=== PATIENT | male | born 1970 | race Caucasian/White ===

== ENCOUNTER 2019-11-06 12:58 | Outpatient (CLI) | payer OTHER, SELFPAY ==
--- NOTE | ~2019-11-06 | XR_ITS ---
EXAMINATION: XR shoulder LT min 2V DATE: 11/06/2019 13:22 INDICATION: Left shoulder pain. TECHNIQUE: 4 views of left shoulder were obtained. COMPARISON: None. FINDINGS: Bone alignment is normal. No fracture. There is mild osteoarthritis of glenohumeral joint a nd acromioclavicular joint characterized by tiny marginal osteophytes. IMPRESSION: 1. Mild polyarticular osteoarthritis. Reviewed, dictated and finalized at location A.
== END 2019-11-06 12:59 | disposition home or self-care (01) ==
PROVIDERS: PCP Internal Medicine; Visit Provider Internal Medicine
DX: M19.012 Primary osteoarthritis, left shoulder (principal)
CPT/HCPCS: 73030

== ENCOUNTER 2019-11-24 07:10 | Outpatient (CLI) | payer OTHER, SELFPAY ==
[2019-11-24 07:44] LABS: Basophils Percent Auto 0.4 % (0.2-1.2); Eosinophils Absolute Auto 0.2 K/mm3 (0-0.3); Eosinophils Percent Auto 2.4 % (0-4.4); Hematocrit 49.1 % (42.0-52.0); Hemoglobin 16.7 g/dL (14.0-18.0); Immature Granulocyte Absolute 0.03 K/mm3 (0.00-0.031); Immature Granulocyte Percent A 0.3 % (0-0.5); Lymphocytes Absolute Auto 2.91 K/mm3 (0.9-3.2); Lymphocytes Percent Auto 32.7 % (18.3-44.2); Mean Corpuscular Hemoglobin 30.8 pg (26-34); Mean Corpuscular Volume 90.6 fl (80-100); Mean Platelet Volume 10.4 fl (7.4-10.4); Monocytes Absolute Auto 0.7 K/mm3 (0.1-0.6); Monocytes Percent Auto 7.4 % (2.6-8.5); Neutrophils Absolute Auto 5.1 K/mm3 (1.3-6.7); Neutrophils Percent Auto 56.8 % (45.5-73.1); Platelet Count Result 239 k/mm3 (150-375); Red Blood Count 5.42 M/mm3 (4.6-6.20); Red Cell Distribution Width 13.5 % (11.5-14.5); White Blood Count 8.9 K/mm3 (4.5-10.0)
[2019-11-24 12:58] LABS: Alanine Aminotransferase 59 U/L (4-50); Albumin Level 4.7 g/dL (3.5-5.1); Alkaline Phosphatase 64 U/L (38-126); Aspartate Amino Transferase 41 U/L (17-59); Bilirubin,Total 0.8 mg/dL (0.2-1.3); Blood Urea Nitrogen 18 mg/dL (9-20); Carbon Dioxide 22 mmol/L (22-30); Chloride 104 mmol/L (98-107); Cholesterol 222 mg/dL (0-200); Estimated Glomerular Filt Rate > 60; Glucose 101 mg/dL (75-110); HDL Direct 34 mg/dL; Potassium 4.4 mmol/L (3.4-5.0); Sodium 137 mmol/L (137-145); Triglycerides 93 mg/dL (<150)
[2019-11-24 13:10] LABS: LDL Cholesterol Direct 179 mg/dL
[2019-11-24 14:04] LABS: Folic Acid 14.1 ng/mL (2.76->20)
[2019-11-28 12:20] LABS: Testosterone Free 57.5 pg/mL (35.0-155.0); Testosterone Total 306 ng/dL (250-1100)
== END 2019-11-24 07:11 | disposition home or self-care (01) ==
PROVIDERS: PCP Internal Medicine; Visit Provider Internal Medicine
DX: R53.83 Other fatigue (principal); E78.5 Hyperlipidemia, unspecified
CPT/HCPCS: 36415; 80053; 80061; 82607; 82746; 84402; 84403; 84443; 85025

== ENCOUNTER 2020-11-15 06:59 | Outpatient (CLI) | payer OTHER, SELFPAY ==
[2020-11-15 07:48] LABS: Basophils Percent Auto 0.4 % (0.2-1.2); Eosinophils Absolute Auto 0.1 K/mm3 (0-0.3); Eosinophils Percent Auto 1.6 % (0-4.4); Hematocrit 44.2 % (42.0-52.0); Hemoglobin 14.8 g/dL (14.0-18.0); Immature Granulocyte Absolute 0.06 K/mm3 (0.00-0.031); Immature Granulocyte Percent A 0.8 % (0-0.5); Lymphocytes Absolute Auto 2.73 K/mm3 (0.9-3.2); Lymphocytes Percent Auto 35.7 % (18.3-44.2); Mean Corpuscular HGB Conc 33.5 g/dl (32-36); Mean Corpuscular Volume 92.7 fl (80-100); Mean Platelet Volume 10.4 fl (7.4-10.4); Monocytes Absolute Auto 0.6 K/mm3 (0.1-0.6); Monocytes Percent Auto 7.3 % (2.6-8.5); Neutrophils Absolute Auto 4.1 K/mm3 (1.3-6.7); Neutrophils Percent Auto 54.2 % (45.5-73.1); Platelet Count Result 201 k/mm3 (150-375); Red Blood Count 4.77 M/mm3 (4.6-6.20); Red Cell Distribution Width 13.3 % (11.5-14.5); White Blood Count 7.6 K/mm3 (4.5-10.0)
[2020-11-15 10:51] LABS: Alanine Aminotransferase 43 U/L (4-50); Albumin Level 4.3 g/dL (3.5-5.1); Alkaline Phosphatase 46 U/L (38-126); Anion Gap 7 mmol/L (8-16); Aspartate Amino Transferase 33 U/L (17-59); Bilirubin,Total 0.3 mg/dL (0.2-1.3); Blood Urea Nitrogen 17 mg/dL (9-20); Calcium 9.4 mg/dL (8.4-10.2); Carbon Dioxide 27 mmol/L (22-30); Chloride 106 mmol/L (98-107); Cholesterol 190 mg/dL (0-200); Estimated Glomerular Filt Rate > 60; Glucose 90 mg/dL (75-110); HDL Direct 31 mg/dL; Potassium 4.3 mmol/L (3.4-5.0); Sodium 140 mmol/L (137-145); Triglycerides 55 mg/dL (<150)
[2020-11-15 11:03] LABS: LDL Cholesterol Direct 122 mg/dL
[2020-11-15 11:23] LABS: Prostate Specific Antigen 0.5 ng/mL (< OR = 4.0)
[2020-11-15 11:57] LABS: Folic Acid 12.1 ng/mL (2.76->20)
[2020-11-18 20:14] LABS: Testosterone Free 240.9 pg/mL (35.0-155.0); Testosterone Total 1090 ng/dL (250-1100)
== END 2020-11-15 07:00 | disposition home or self-care (01) ==
PROVIDERS: PCP Internal Medicine; Visit Provider Internal Medicine
DX: Z00.00 Encounter for general adult medical examination without abnormal findings (principal); R53.83 Other fatigue; Z12.5 Encounter for screening for malignant neoplasm of prostate
CPT/HCPCS: 36415; 80053; 80061; 82607; 82746; 84153; 84402; 84403; 84443; 85025; G0103

== ENCOUNTER 2020-12-01 09:36 | Outpatient (CLI) | payer OTHER, SELFPAY ==
--- NOTE | 2020-12-01 09:52 | EST_ITS ---
Patient Info Name: Jared Samson Age: 50 years : 1970 Gender: Male Ht: 68 in Wt: 190 lbs BSA: 2.05 m2 Technical Quality: Good Exam Date: 12/01/2020 10:11 AM Exam Location: [facility] Pulmonary Patient Status: Outpatient Admit Date: 12/01/2020 Staff Ordering Physician: Norberto Monson DO Elevator Installer: Frances Cardenas RDCS Attending Provider: KIERAN CASTRO DO Referring Physician: Ermias HERNANDEZ; Exercise Technologist: Brittany Mcclain RDCS Exercise Physician: Kieran Castro DO Exam Type: CA stress echo Study Info Indications R07.89 - Other chest pain Treadmill exercise stress echocardiogram is performed. Summary 1. 1. Negative Aaron exercise stress test for ischemic ST changes by ECG criteria. 2. 2. Good functional capacity, achieving 12 METs of workload. 3. 3. Appropriate HR response to exercise. 4. 4. Appropriate HR recovery at 1 minute post exercise. 5. 5. Negative stress echocardiogram for ischemia by wall motion analysis. 6. 6. Patient informed of the above results. Stress Echo Findings Left Ventricle Appropriate increase in LV endocardial thickening with systole. Appropriate augmentation of contractility with systole. No wall motion abnormality. Left Ventricle Normal LV systolic function, no wall motion abnormality. Protocol: Aaron Stress ECG Details Stage: REST Duration (min): 4 min : 45 sec Speed (mph): 0.0 Grade (%): 0 HR (bpm): 63 SBP (mmHg): 107 DBP (mmHg): 84 METS: --- Stage: REST Duration (min): 18 min : 43 sec Speed (mph): 0.0 Grade (%): 0 HR (bpm): 70 SBP (mmHg): 107 DBP (mmHg): 84 METS: --- Stage: STAGE 1 Duration (min): 1 min : 0 sec Speed (mph): 1.7 Grade (%): 10 HR (bpm): 90 SBP (mmHg): 107 DBP (mmHg): 84 METS: --- Stage: STAGE 1 Duration (min): 2 min : 0 sec Speed (mph): 1.7 Grade (%): 10 HR (bpm): 91 SBP (mmHg): 107 DBP (mmHg): 84 METS: --- Stage: STAGE 1 Duration (min): 3 min : 0 sec Speed (mph): 1.7 Grade (%): 10 HR (bpm): 98 SBP (mmHg): 143 DBP (mmHg): 79 METS: --- Stage: STAGE 2 Duration (min): 1 min : 0 sec Speed (mph): 2.5 Grade (%): 12 HR (bpm): 103 SBP (mmHg): 143 DBP (mmHg): 79 METS: --- Stage: STAGE 2 Duration (min): 2 min : 0 sec Speed (mph): 2.5 Grade (%): 12 HR (bpm): 103 SBP (mmHg): 120 DBP (mmHg): 77 METS: --- Stage: STAGE 2 Duration (min): 3 min : 0 sec Speed (mph): 2.5 Grade (%): 12 HR (bpm): 113 SBP (mmHg): 120 DBP (mmHg): 77 METS: --- Stage: STAGE 3 Duration (min): 1 min : 0 sec Speed (mph): 3.4 Grade (%): 14 HR (bpm): 116 SBP (mmHg): 134 DBP (mmHg): 85 METS: --- Stage: STAGE 3 Duration (min): 2 min : 0 sec Speed (mph): 3.4 Grade (%): 14 HR (bpm): 129 SBP (mmHg): 134 DBP (mmHg): 85 METS: --- Stage: STAGE 3 Duration (min): 3 min : 0 sec Speed (mph): 3.4
== END 2020-12-01 09:37 | disposition home or self-care (01) ==
LOC: ANHCARD 09:38
PROVIDERS: PCP Internal Medicine; Visit Provider Internal Medicine
DX: R07.89 Other chest pain (principal)
CPT/HCPCS: 93351

== ENCOUNTER → 2021-03-30 15:59 | Outpatient (REF) | payer OTHER, SELFPAY | LOC: ANHLAB 15:59 | PROVIDERS: PCP Internal Medicine; Visit Provider Nurse Practitioner | DX: D22.5 Melanocytic nevi of trunk (principal) | CPT/HCPCS: 88305 ==

== ENCOUNTER 2021-11-22 07:46 | Outpatient (CLI) | payer OTHER, SELFPAY ==
--- NOTE | 2021-12-18 01:23 | WPDSLEEPSTUD ---
Sleep Study Date of Study: 11/22/21 Ordering Provider: Norberto Monson DO Interpreting Physician: Dania Cabezas MD Sleep Study Type: Polysomnogram Height: 1.73 m Weight: 88.451 kg Body Mass Index: 29.6 Neck Circumference (inches): 18 [place]: 10 Reason for Sleep Study Hypersomnolence, loud snoring Sleep History Jared Samson is a 51 year old man with complains of sweating at night, frequent urination and labored breathing which wakes him during sleep on occasion. He has general fatigue. He has is tired by 10:00 a.m. after waking. He has a history of obstructive sleep apnea, could not tolerate CPAP, and had surgery to remove his uvula, adenoids and tonsils. He tried CPAP but could not fall asleep wearing it. There is a family history of sleep issues with his father having a diagnosis of sleep apnea. 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 He occasionally wakes up from sleep feeling short of breath. He occasionally awakens at night with heartburn, belching or coughing. He frequently snores but only occasionally loudly enough that others complain about it. He rarely has trouble sleeping with a cold. He occasionally wakes up gasping for breath at night and occasionally has breathing problems at night observed by others. He rarely sweats excessively at night. He does not notice his heart pounding or beating irregularly at night. He rarely falls asleep during the day. He does not fall asleep involuntarily or while driving. He does not have loss of muscle tone with strong emotion. He does not have daytime difficulties due to excessive sleepiness. He does not feel paralyzed on waking or falling asleep. He does not have vivid dreamlike scenes upon awakening or falling asleep. He does not feel afraid to go to sleep. He does not have nightmares. He rarely remembers his dreams. He rarely has racing thoughts. He does not feel sad or depressed. He rarely feels anxious. He rarely has muscular tension or notice parts of his body jerking. He does not kick at night. He denies having crawling and aching feelings in his legs at night. He does not have morning jaw pain. He does not grind his teeth during sleep. He is not bothered by pain during the day nor awakened by pain during the night. He rarely wakes up feeling stiff in the morning, rarely wakes up with sore or achy muscles, rarely wakes up with pain in the neck and spine. He has memory problems. Normal bedtime is 9:00 p.m., usually falls asleep within 10 minutes, typically waking up 3-4 times at night to use the bathroom. He is able to return to sleep within 5 minutes. His normal wake up time is 5:00 a.m.. He keeps the same schedule on the weekends. He does not take naps. Naps are not refreshing. He is usually drowsy in the morning for an hour. Habits: Never smoked tobacco. Caffeine 1 cup a day. Alcohol is consumed on weekends only. No recreational drug use. [facility] Past Medical History Medical History (Updated 12/18/21 @ 01:42 by Dania Cabezas MD) Pure hypercholesterolemia Family History Family History Mother Family history of elevated blood lipids Father Cerebrovascular accident Patient's father is Family history of malignant melanoma Social History Social History Smoking status: Never smoker Second hand tobacco smoke exposure: No Alcohol intake: current Medications Home Medications Medication Instructions Recorded Confirmed Type aspirin 81 mg tablet,delayed 81 mg PO DAILY 09/04/19 05/24/21 History release (Adult Low Dose Aspirin) ginkgo biloba 60 mg capsule 60 mg PO DAILY 09/04/19 05/24/21 History mecobalamin (vitamin B12) 5,000 mcg PO 09/04/19 05/24/21 History mcg disintegrating tablet multivitamin (Multiple Vitamins 1 tablet PO DAILY 09/04/19 05/24/21 History tablet) omega-3 fatty a
[2021-12-18 01:47] VITALS: BMI 29.6
== END 2021-11-23 04:20 | disposition home or self-care (01) ==
LOC: ANHCSM 07:47
PROVIDERS: PCP Internal Medicine; Visit Provider Internal Medicine
DX: Z98.890 Other specified postprocedural states (principal); G47.30 Sleep apnea, unspecified; R06.83 Snoring
CPT/HCPCS: 95810

== ENCOUNTER 2022-04-17 02:16 | Day surgery (SDC) | payer OTHER, SELFPAY ==
[2022-03-29 14:52] VITALS: BMI 29.1
[2022-04-17 07:13] VITALS: BP 111/86; PULSE 65; RESP 17; TEMP 36.2; O2SAT 97; BMI 29.7
[2022-04-17] MEDS: LACTATED RINGERS 1,000 ML 150 ML IV CONT (07:22)
--- NOTE | 2022-04-17 07:38 | WPDANESEPPF ---
Anes - Initial Pre Proc Eval Procedure: Operation Date: 04/17/22 08:30 Proposed Procedures p Esophagogastroduodenoscopy - Julian Pandey MD Date/Time: 04/17/22 07:38 Surgeon: Julian Pandey MD Pre Op Diagnosis: GERD Patient Data Age: 52 Gender: M Height: 1.73 m Weight: 88.8 kg Last Vital Signs Temp 36.2 C L 04/17/22 07:13 Pulse 65 04/17/22 07:13 Resp 17 04/17/22 07:13 BP 111/86 04/17/22 07:13 Pulse Ox 97 04/17/22 07:13 O2 Del Method Room Air 04/17/22 07:13 Allergies Allergy/AdvReac Type Severity Reaction Status Date / Time No Known Allergies Allergy Verified 04/17/22 07:10 Home Medications Medication Instructions Recorded Confirmed Type aspirin 81 mg tablet,delayed 81 mg PO DAILY 09/04/19 04/17/22 History release (Adult Low Dose Aspirin) ginkgo biloba 60 mg capsule 60 mg PO DAILY 09/04/19 04/17/22 History multivitamin (Multiple Vitamins 1 tablet PO DAILY 09/04/19 04/17/22 History tablet) omega-3 fatty acids 1,000 mg 1,000 mg PO DAILY 09/04/19 04/17/22 History capsule (Fish Oil Concentrate) vitamin E 200 unit capsule 200 unit PO DAILY 09/04/19 04/17/22 History simvastatin 20 mg tablet (Zocor) 20 mg PO DAILY #90 tabs 10/04/21 04/17/22 Rx pantoprazole 40 mg tablet,delayed 40 mg PO QAM #90 tabs 01/30/22 04/17/22 Rx release Patient hx anesthesia problems: none Family hx anesthesia problems: none Results Review: All pre-operative results and documents have been reviewed as part of the pre-operative evaluation. [facility] Past Medical History Medical History (Updated 04/17/22 @ 07:38 by Bird Newsome MD) Overweight Pure hypercholesterolemia Surgical History Surgical History (Updated 04/17/22 @ 07:42 by Bird Newsome MD) S/P UPPP (uvulopalatopharyngoplasty) Family History Family History Mother Family history of elevated blood lipids Father Cerebrovascular accident Patient's father is Family history of malignant melanoma Social History Social History Smoking status: Never smoker Second hand tobacco smoke exposure: No Alcohol intake: current Drinks per week: 1 Living arrangements: with family Spiritual care concerns: No Anes - Eval Final PreProcedure Day of Procedure 04/17/22 07:38 Patient weight: overweight Heart: regular rate and rhythm Lungs: clear to auscultation Airway: Mallampati scale class II Neurological: alert and oriented Last oral intake: >/= 8 hours ASA classification: II Emergent: no Anesthetic plan: proceed Anesthesia type and monitoring: general GIVS and standard monitoring Results Review: All pre-operative results and documents have been reviewed as part of the pre-operative evaluation. Informed Consent: The patient's anesthetic plan and its attendant risks and benefits were discussed with the patient/family/POA. Questions were solicited and answers provided to the satisfaction of the patient/family/POA.
--- NOTE | 2022-04-17 08:12 | PM.HPGS ---
History of Present Illness History of Present Illness Consent: Risks, benefits, and alternatives have been discussed and questions answered. Patient agrees to proceed with procedure. Chief complaint: GERD Narrative: Jared Samson is a 52 year old male with symptomatic gerd using ppi, never had egd Review of Systems Constitutional: Constitutional: Denies headache(s) and Denies weakness Eyes: Eyes: Denies blurry vision ENT: Reports Normal hearing present, Denies headache(s) and Denies neck pain Cardiovascular: Cardiovascular: Denies chest pain and Denies dyspnea Respiratory: Respiratory: Denies dyspnea Gastrointestinal: Gastrointestinal: Reports no additional gastrointestinal complaints Genitourinary: Genitourinary: Denies dysuria Musculoskeletal: Musculoskeletal: Denies neck pain Integumentary/Breasts: Skin/Breast: Denies dry skin Neurologic: Reports Normal hearing present, Denies headache(s) and Denies weakness Psychiatric: Psychiatric: Denies anxiety Endocrine: Endocrine: Denies change in body appearance Hematologic/Lymphatic: Hematologic/Lymphatic: Denies easy bleeding Allergic/Immunologic: Allergic/Immunologic: Denies urticaria PMFSH Past Medical History Medical History (Updated 04/17/22 @ 08:12 by Julian Pandey MD) GERD (gastroesophageal reflux disease) Overweight Pure hypercholesterolemia Surgical History Surgical History (Updated 04/17/22 @ 07:42 by Bird Newsome MD) S/P UPPP (uvulopalatopharyngoplasty) Family History Family History Mother Family history of elevated blood lipids Father Cerebrovascular accident Patient's father is Family history of malignant melanoma Social History Social History Smoking status: Never smoker Second hand tobacco smoke exposure: No Alcohol intake: current Drinks per week: 1 Living arrangements: with family Spiritual care concerns: No Meds Home Medications and Allergies Home Medications Medication Instructions Recorded Confirmed Type aspirin 81 mg tablet,delayed 81 mg PO DAILY 09/04/19 04/17/22 History release (Adult Low Dose Aspirin) ginkgo biloba 60 mg capsule 60 mg PO DAILY 09/04/19 04/17/22 History multivitamin (Multiple Vitamins 1 tablet PO DAILY 09/04/19 04/17/22 History tablet) omega-3 fatty acids 1,000 mg 1,000 mg PO DAILY 09/04/19 04/17/22 History capsule (Fish Oil Concentrate) vitamin E 200 unit capsule 200 unit PO DAILY 09/04/19 04/17/22 History simvastatin 20 mg tablet (Zocor) 20 mg PO DAILY #90 tabs 10/04/21 04/17/22 Rx pantoprazole 40 mg tablet,delayed 40 mg PO QAM #90 tabs 01/30/22 04/17/22 Rx release Allergies Allergy/AdvReac Type Severity Reaction Status Date / Time No Known Allergies Allergy Verified 04/17/22 07:10 Vital Signs Vital Signs - 24 hr 04/17/22 07:13 Temperature 97.2 F L Pulse Rate 65 Respiratory Rate 17 Blood Pressure 111/86 Pulse Oximetry 97 Oxygen Delivery Room Air Exam Const: General: comfortable and no acute distress HENMT: Face/Nose/Sinus: Normal nares present Eyes: General: appearance normal, both eyes and all related structures Neck: Neck: no JVD Resp: Auscultation: clear to auscultation bilaterally Cardio: Rate: regular rate Rhythm: regular rhythm GI: Inspection: non-distended GI Palp: Yes Soft to palpation Skin: General skin exam: normal color Neuro: General: gait normal Speech: normal speech Extrem: General: normal to inspection Psych: Mental Status: mental status grossly normal Assessment and Plan Assessment and plan (1) GERD (gastroesophageal reflux disease): Code(s): K21.9 - Gastro-esophageal reflux disease without esophagitis Status: Acute Assessment and Plan: egd with bx, on ppi
[2022-04-17 08:23] VITALS: BP 106/72; PULSE 72; RESP 23; O2SAT 98
[2022-04-17 08:33] VITALS: BP 120/84; PULSE 63; RESP 25; O2SAT 98
[2022-04-17 08:43] VITALS: BP 123/88; PULSE 63; RESP 20; O2SAT 98
== END 2022-04-17 08:54 | disposition home or self-care (01) ==
PROVIDERS: PCP Internal Medicine; Visit Provider Internal Medicine Gastroenterology
PROC: 0DJ08ZZ Inspection of Upper Intestinal Tract, Via Natural or Artificial Opening Endoscopic (ICD-10-PCS; CPT 43235; principal; 2022-04-17 08:30)
DX: K21.9 Gastro-esophageal reflux disease without esophagitis (principal); E78.00 Pure hypercholesterolemia, unspecified; Z79.82 Long term (current) use of aspirin
CPT/HCPCS: 43239; 88305; J2704; J7120

== ENCOUNTER 2022-05-31 09:00 | Outpatient (NON) | payer OTHER, SELFPAY | END 2022-05-31 09:01 | disposition home or self-care (01) | LOC: ANHLAB 06-01 12:55 | PROVIDERS: PCP Internal Medicine; Visit Provider Nurse Practitioner | DX: D49.2 Neoplasm of unspecified behavior of bone, soft tissue, and skin (principal) | CPT/HCPCS: 88305 ==

== ENCOUNTER 2022-08-11 15:49 | Emergency (ER) | payer OTHER, SELFPAY ==
--- NOTE | ~2022-08-11 | XR_ITS ---
XR chest 2V DATE: 08/11/2022 16:10 INDICATION: Cough for 10+ days. Nonsmoker. TECHNIQUE: 2 views COMPARISON: 05/31/2008 PA and lateral chest FINDINGS: Normal heart size. No hilar or mediastinal enlargement. No pulmonary infiltrate or consolid ation, pleural effusion or pulmonary vascular congestion or pneumothorax is detected. IMPRESSION: No active cardiopulmonary disease Reviewed, dictated and finalized at location A.
--- NOTE | 2022-08-11 15:51 | ED.URI ---
HPI - URI/Sore Throat General Chief Complaint: Upper Respiratory Infection Stated Complaint: Cough/Sinus Time Seen by Provider: 08/11/22 15:51 Source: patient Mode of arrival: ambulatory Limitations: no limitations History of Present Illness HPI Narrative: Harley is a 52-year-old male patient presenting to the clinic today with complaints of chest congestion, cough, and sinus congestion times 10 days. He reports he was seen by his PCP on the and was given prescription for albuterol inhaler, azithromycin, and Tessalon Perles. States that he is still having a productive cough and chest congestion along with with feeling short of breath upon exertion. He denies any fever or chills. States he has been bringing up brown/green phlegm prior to albuterol, azithromycin, and Tessalon Perles treatment but, he is still having some green and clear phlegm. MD elicited complaint: cough (Productive), nasal congestion and other (Dyspnea on exertion) Related Data Home Medications Medication Instructions Recorded Confirmed aspirin 81 mg tablet,delayed 81 mg PO DAILY 09/04/19 08/11/22 release (Adult Low Dose Aspirin) ginkgo biloba 60 mg capsule 60 mg PO DAILY 09/04/19 08/11/22 multivitamin (Multiple Vitamins 1 tablet PO DAILY 09/04/19 08/11/22 tablet) omega-3 fatty acids 1,000 mg 1,000 mg PO DAILY 09/04/19 08/11/22 capsule (Fish Oil Concentrate) vitamin E 200 unit capsule 200 unit PO DAILY 09/04/19 08/11/22 Allergies Allergy/AdvReac Type Severity Reaction Status Date / Time No Known Allergies Allergy Verified 08/11/22 15:51 Review of Systems Review of Systems: Pertinent positives per HPI. Patient denies any fever, chills, rash, headache, visual changes, dizziness, cough, shortness of breath, chest pain, palpitations, nausea, vomiting, diarrhea, constipation, abdominal pain, or any urinary issues. [facility] Past Medical History Medical History GERD (gastroesophageal reflux disease) Overweight Pure hypercholesterolemia Surgical History Surgical History S/P UPPP (uvulopalatopharyngoplasty) Family History Family History Mother Family history of elevated blood lipids Father Cerebrovascular accident Patient's father is Family history of malignant melanoma Social History Social History Smoking status: Never smoker Second hand tobacco smoke exposure: No Alcohol intake: current Drinks per week: 1 Living arrangements: with family Spiritual care concerns: No Comments At the time of my signature, I reviewed and agree with the nursing past medical, surgical, social, and family history. There is no relevant family history pertinent to the patient complaint. Exam Narrative: General: Well-developed, well nourished, in no apparent distress Head: Normocephalic, atraumatic Eyes: Pupils equally round and reactive to light bilaterally, EOM intact, sclera and conjunctive clear, no discharge, lids normal Ears: TMs intact and clear, ear canals clear, no drainage, grossly hearing normal. Nose: Nares patent, no discharge, no inflammation, no sinus tenderness. Mouth: Oral pharynx without lesions or masses, good dentition, MMM. Neck: Supple, trachea midline, no enlargement of anterior or posterior cervical nodes, no thyroid masses or goiter palpable. Cardio: Regular rate and rhythm, s1 and s2 normal, no murmur appreciated. Resp: Clear to auscultation bilaterally, no rhonchi, rales, wheezing or rubs Course Course Emergency Course: Portions of this record may have been created with voice recognition software. Level of Care: Express Care Visit Vital Signs Vital signs: Vital Signs Temperature 36.6 C 08/11/22 15:59 Pulse Rate 77 08/11/22 15:59 Respirato
[2022-08-11 15:59] VITALS: BP 123/90; PULSE 77; RESP 18; TEMP 36.6; O2SAT 100
== END 2022-08-11 16:37 | disposition home or self-care (01) ==
PROVIDERS: Emergency Provider Nurse Practitioner Family; PCP Internal Medicine
DX: J40 Bronchitis, not specified as acute or chronic (principal); K21.9 Gastro-esophageal reflux disease without esophagitis; E78.00 Pure hypercholesterolemia, unspecified
CPT/HCPCS: 71046; 99213; G0463

== ENCOUNTER 2023-10-08 07:04 | Outpatient (CLI) | payer OTHER, SELFPAY ==
[2023-10-08 08:18] LABS: Basophils Percent Auto 0.3 % (0.2-1.2); Eosinophils Absolute Auto 0.2 K/mm3 (0-0.3); Eosinophils Percent Auto 2.6 % (0-4.4); Hemoglobin 15.6 g/dL (14.0-18.0); Immature Granulocyte Absolute 0.01 K/mm3 (0.00-0.031); Immature Granulocyte Percent A 0.2 % (0-0.5); Lymphocytes Absolute Auto 2.46 K/mm3 (0.9-3.2); Lymphocytes Percent Auto 37.6 % (18.3-44.2); Mean Corpuscular HGB Conc 32.5 g/dl (32-36); Mean Corpuscular Hemoglobin 30.8 pg (26-34); Mean Corpuscular Volume 94.7 fl (80-100); Mean Platelet Volume 10.6 fl (7.4-10.4); Monocytes Absolute Auto 0.6 K/mm3 (0.1-0.6); Monocytes Percent Auto 8.4 % (2.6-8.5); Neutrophils Absolute Auto 3.3 K/mm3 (1.3-6.7); Neutrophils Percent Auto 50.9 % (45.5-73.1); Platelet Count Result 221 k/mm3 (150-375); Red Blood Count 5.07 M/mm3 (4.6-6.20); Red Cell Distribution Width 13.3 % (11.5-14.5); White Blood Count 6.6 K/mm3 (4.5-10.0)
[2023-10-08 08:21] LABS: Alanine Aminotransferase 53 U/L (6-50); Albumin Level 4.7 g/dL (3.5-5.1); Alkaline Phosphatase 56 U/L (38-126); Anion Gap 7 mmol/L (4-12); Aspartate Amino Transferase 33 U/L (17-59); Bilirubin,Total 0.7 mg/dL (0.2-1.3); Blood Urea Nitrogen 22 mg/dL (9-20); Calcium 8.9 mg/dL (8.4-10.2); Carbon Dioxide 26 mmol/L (22-30); Chloride 106 mmol/L (98-107); Cholesterol 198 mg/dL (0-200); Estimated Glomerular Filt Rate > 60; Glucose 97 mg/dL (65-110); HDL Direct 41 mg/dL; Potassium 4.4 mmol/L (3.4-5.0); Sodium 139 mmol/L (137-145); Triglycerides 85 mg/dL (<150)
[2023-10-08 08:31] LABS: LDL Cholesterol Direct 140 mg/dL
[2023-10-08 08:50] LABS: Prostate Specific Antigen 0.5 ng/mL (< OR = 4.0)
[2023-10-08 09:26] LABS: Folic Acid 8.7 ng/mL (2.76->20)
[2023-10-12 14:23] LABS: Testosterone Free 58.6 pg/mL (35.0-155.0); Testosterone Total 311 ng/dL (250-1100)
== END 2023-10-08 07:05 | disposition home or self-care (01) ==
PROVIDERS: PCP Internal Medicine; Visit Provider Physician Assistant
DX: Z00.00 Encounter for general adult medical examination without abnormal findings (principal); Z12.5 Encounter for screening for malignant neoplasm of prostate; E29.1 Testicular hypofunction
CPT/HCPCS: 36415; 80053; 80061; 82607; 82746; 84153; 84402; 84403; 84443; 85025; G0103